=== PATIENT | male | born 1980 | race Caucasian/White ===

== ENCOUNTER 2024-01-02 01:26 | Emergency (ER) | payer OTHER ==
[2024-01-02 01:40] VITALS: RESP 16; TEMP 97.7; BMI 26.9
[2024-01-02] MEDS ORDERED: KETOROLAC TROMETHAMINE 30 MG/1 ML VIAL ONE (02:05)
[2024-01-02] MEDS ORDERED: ASPIRIN 81 MG CHEWABLE TABLETS ONE (02:05)
[2024-01-02] MEDS ORDERED: ALPRAZolam 0.25 MG TABLET ONE (02:06)
[2024-01-02] MEDS: KETOROLAC TROMETHAMINE 30 MG/1 ML VIAL IM ONE (02:10)
[2024-01-02] MEDS: ALPRAZolam 1 MG TABLET PO PRN (02:10)
[2024-01-02] MEDS: ASPIRIN 81 MG CHEWABLE TABLETS PO ONE (02:10)
[2024-01-02] MEDS: KETOROLAC TROMETHAMINE 30 MG/1 ML VIAL IVPUSH ONE (02:11)
[2024-01-02] MEDS ORDERED: ALPRAZolam 0.25 MG TABLET PO PRN (02:28)
[2024-01-02 03:57] VITALS: BP 138/93; PULSE 56
== END 2024-01-02 04:01 | disposition home or self-care (01) ==
LOC: FER 01:26
PROC: 3E0233Z Introduction of Anti-inflammatory into Muscle, Percutaneous Approach (ICD-10-PCS; principal; 2024-01-02)
DX: R07.89 Other chest pain (principal); G43.909 Migraine, unspecified, not intractable, without status migrainosus; F41.9 Anxiety disorder, unspecified
CPT/HCPCS: 36415; 82550; 82553; 84484; 93005; 99284-25